=== PATIENT | female | born 1970 | race African-American/Black ===

== ENCOUNTER 2016-11-28 10:06 | Emergency (ER) | payer MEDICAID ==
[~2016-11-28] VITALS: Ht 172.7 cm; Wt 59.0 kg
[2016-11-28 13:39] LABS: CLARITY URINE CLEAR (CLEAR); COLOR URINE YELLOW (YELLOW); GLUCOSE URINE NEGATIVE (NEGATIVE); KETONES URINE NEGATIVE (NEGATIVE); LEUKOCYTE ESTERASE URINE NEGATIVE (NEGATIVE); NITRITE URINE NEGATIVE (NEGATIVE); OCCULT BLOOD URINE NEGATIVE (NEGATIVE); PH URINE 6.5 (4.5-8.0); PROTEIN URINE NEGATIVE (NEGATIVE); SPECIFIC GRAVITY URINE 1.031 (1.005-1.030)
[2016-11-28] MEDS ORDERED: SODIUM CHLORIDE 0.9% 1,000 ML IV ONE (14:06)
[2016-11-28] MEDS ORDERED: KETOROLAC 30MG/ML VIAL IV STA (14:06)
[2016-11-28] MEDS ORDERED: IPRATROPIUM BROMIDE (0.02%) 0.5MG/2.5ML NEB HHN STA (14:14)
[2016-11-28] MEDS ORDERED: ALBUTEROL (0.083%) 2.5MG/3ML NEB HHN STA (14:14)
[2016-11-28 15:21] LABS: INR 1.1
[2016-11-28 15:22] LABS: BASOPHILS % 0.6 % (0.0-2.0); HEMATOCRIT. 34.9 % (36.0-48.0); HEMOGLOBIN. 11.9 g/dL (12.0-16.0); LYMPHOCYTES % 36.5 % (20.0-50.0); MEAN CORPUSCULAR HEMOGLOBIN 30.4 pg (28.0-32.0); MEAN PLATELET VOLUME 7.6 fl (7.4-10.4); MONOCYTES % 7.8 % (2.0-8.0); NEUTROPHILS % 51.1 % (40.0-76.0); PLATELET 281 x1000/uL (130-400); RED BLOOD CELL COUNT 3.93 mill/uL (4.2-5.4); RED CELL DISTRIBUTION WIDTH 12.4 % (11.6-14.6)
[2016-11-28 15:23] LABS: CHLORIDE 112 mEq/L (98-107)
[2016-11-28 15:28] LABS: CARBON DIOXIDE 27 mEq/L (21-32)
[2016-11-28 16:16] VITALS: BP 110/72
== END 2016-11-28 16:35 | disposition home or self-care (01) ==
LOC: ER 12:50
DX: R10.32 Left lower quadrant pain (principal); M54.5 Low back pain; J45.909 Unspecified asthma, uncomplicated; E78.00 Pure hypercholesterolemia, unspecified
CPT/HCPCS: 36415; 76830; 76856; 80053; 81003; 81025; 83690; 85025; 85610; 94640; 96361; 96374; 99285; J1885; J7030; J7611; Z7610

== ENCOUNTER 2016-12-21 20:54 | Emergency (ER) | payer MEDICAID ==
[~2016-12-21] VITALS: Ht 172.7 cm; Wt 58.0 kg
[2016-12-21] MEDS ORDERED: METOCLOPRAMIDE HCL 10MG/2ML VIAL IV ONE (22:45)
[2016-12-21] MEDS ORDERED: KETOROLAC 30MG/ML VIAL IV ONE (22:45)
[2016-12-21] MEDS ORDERED: DIPHENHYDRAMINE 50MG/ML VIAL IV ONE (22:45)
[2016-12-21] MEDS ORDERED: SODIUM CHLORIDE 0.9% 1,000 ML IV ONE (22:45)
[2016-12-21 23:35] VITALS: BP 100/89
== END 2016-12-22 01:12 | disposition home or self-care (01) ==
LOC: ER 20:54
DX: R51 Headache (principal); J45.909 Unspecified asthma, uncomplicated
CPT/HCPCS: 96361; 96374; 96375; 99285; J1200; J1885; J2765; J7030; Z7610

== ENCOUNTER 2017-01-12 08:04 | Emergency (ER) | payer MEDICAID ==
[~2017-01-12] VITALS: Ht 172.7 cm; Wt 61.0 kg
[2017-01-12] MEDS ORDERED: KETOROLAC 30MG/ML VIAL IV STA (10:02)
[2017-01-12] MEDS ORDERED: SODIUM CHLORIDE 0.9% 1,000 ML IV ONE (10:02)
[2017-01-12] MEDS ORDERED: METOCLOPRAMIDE HCL 5MG TABLET PO ONE (10:15)
[2017-01-12] MEDS ORDERED: METOCLOPRAMIDE HCL 10MG/2ML VIAL IV ONE (10:15)
[2017-01-12 10:17] LABS: CLARITY URINE CLEAR (CLEAR); COLOR URINE YELLOW (YELLOW); GLUCOSE URINE NEGATIVE (NEGATIVE); KETONES URINE NEGATIVE (NEGATIVE); LEUKOCYTE ESTERASE URINE TRACE (NEGATIVE); NITRITE URINE NEGATIVE (NEGATIVE); OCCULT BLOOD URINE NEGATIVE (NEGATIVE); PROTEIN URINE NEGATIVE (NEGATIVE); SPECIFIC GRAVITY URINE 1.026 (1.005-1.030); UROBILINOGEN URINE 0.2 E.U./dL (0.2-1.0)
[2017-01-12 10:23] LABS: BASOPHILS % 1.2 % (0.0-2.0); EOSINOPHILS % 1.1 % (0.0-5.0); HEMATOCRIT. 37.8 % (36.0-48.0); HEMOGLOBIN. 12.8 g/dL (12.0-16.0); LYMPHOCYTES % 30.6 % (20.0-50.0); MEAN CORPUSCULAR HEMOGLOBIN 30.2 pg (28.0-32.0); MEAN CORPUSCULAR VOLUME 89.1 fL (81.0-99.0); MEAN PLATELET VOLUME 7.4 fl (7.4-10.4); MONOCYTES % 6.7 % (2.0-8.0); NEUTROPHILS % 60.4 % (40.0-76.0); PLATELET 337 x1000/uL (130-400); RED BLOOD CELL COUNT 4.25 mill/uL (4.2-5.4); RED CELL DISTRIBUTION WIDTH 12.2 % (11.6-14.6)
[2017-01-12 10:30] LABS: CHLORIDE 106 mEq/L (98-107)
[2017-01-12 10:33] LABS: INR 1.1; PROTHROMBIN TIME 11.2 sec
[2017-01-12 10:34] LABS: CARBON DIOXIDE 26 mEq/L (21-32)
[2017-01-12 10:49] LABS: *AMPHETAMINES SCREEN URINE NEGATIVE (NEGATIVE); *BARBITURATES SCREEN URINE NEGATIVE (NEGATIVE); *BENZODIAZEPINES SCREEN URINE NEGATIVE (NEGATIVE); *COCAINE SCREEN URINE NEGATIVE (NEGATIVE); CANNABINOID URINE SCREEN NEGATIVE (NEGATIVE); METHADONE URINE SCREEN NEGATIVE (NEGATIVE); OPIATES URINE SCREEN NEGATIVE (NEGATIVE); PHENCYCLIDINE URINE SCREEN NEGATIVE (NEGATIVE)
[2017-01-12] MEDS ORDERED: MECLIZINE 25MG TABLET PO ONE (11:30)
[2017-01-12 12:22] VITALS: BP 121/74
== END 2017-01-12 12:48 | disposition home or self-care (01) ==
LOC: ER 09:39
DX: N39.0 Urinary tract infection, site not specified (principal); R53.1 Weakness; J45.909 Unspecified asthma, uncomplicated; E78.00 Pure hypercholesterolemia, unspecified
CPT/HCPCS: 36415; 80053; 80305; 81001; 81025; 85025; 85610; 96361; 96374; 96375; 99284; J1885; J2765; J7030; J8597

== ENCOUNTER 2017-03-14 10:15 | Emergency (ER) | payer SELFPAY ==
[~2017-03-14] VITALS: Ht 172.7 cm; Wt 57.0 kg
[2017-03-14] MEDS ORDERED: ALBUTEROL (0.083%) 2.5MG/3ML NEB HHN STA (11:56)
[2017-03-14] MEDS ORDERED: METHYLPREDNISOLONE SOD SUCC 125 MG/2 ML VIAL IM STA (11:56)
[2017-03-14] MEDS ORDERED: IPRATROPIUM BROMIDE (0.02%) 0.5MG/2.5ML NEB HHN STA (11:56)
[2017-03-14 12:15] VITALS: BP 110/69
[2017-03-14] MEDS ORDERED: IBUPROFEN 600MG TABLET PO STA (13:17)
== END 2017-03-14 13:41 | disposition home or self-care (01) ==
LOC: ER 10:15
DX: J45.901 Unspecified asthma with (acute) exacerbation (principal); E78.00 Pure hypercholesterolemia, unspecified
CPT/HCPCS: 94640; 96372; 99283; J2930; J7611

== ENCOUNTER 2017-11-22 07:22 | Emergency (ER) | payer MEDICAID ==
[~2017-11-22] VITALS: Ht 167.6 cm; Wt 50.0 kg
[2017-11-22] MEDS ORDERED: PREDNISONE 20MG TABLET PO STA (07:41)
[2017-11-22] MEDS ORDERED: ALBUTEROL (0.083%) 2.5MG/3ML NEB HHN STA (07:41)
[2017-11-22 08:15] LABS: BASOPHILS % 0.7 % (0.0-2.0); EOSINOPHILS % 1.7 % (0.0-5.0); HEMATOCRIT. 39.7 % (36.0-48.0); HEMOGLOBIN. 13.4 g/dL (12.0-16.0); LYMPHOCYTES % 29.8 % (20.0-50.0); MEAN CORPUSCULAR HEMOGLOBIN 30.3 pg (28.0-32.0); MEAN CORPUSCULAR VOLUME 89.8 fL (81.0-99.0); MEAN PLATELET VOLUME 7.5 fl (7.4-10.4); MONOCYTES % 6.7 % (2.0-8.0); NEUTROPHILS % 61.1 % (40.0-76.0); PLATELET 354 x1000/uL (130-400); RED BLOOD CELL COUNT 4.42 mill/uL (4.2-5.4); RED CELL DISTRIBUTION WIDTH 12.6 % (11.6-14.6)
[2017-11-22 08:18] LABS: CHLORIDE 110 mEq/L (98-107)
[2017-11-22 09:06] VITALS: BP 150/82
== END 2017-11-22 09:19 | disposition home or self-care (01) ==
LOC: ER 07:23
DX: J45.901 Unspecified asthma with (acute) exacerbation (principal); S90.512A Abrasion, left ankle, initial encounter; X58.XXXA Exposure to other specified factors, initial encounter; Y93.89 Activity, other specified; Y92.89 Other specified places as the place of occurrence of the external cause
CPT/HCPCS: 36415; 71045; 80053; 81025; 85025; 94640; 99285; J7512; J7611; Z7610

== ENCOUNTER 2018-03-14 18:03 | Emergency (ER) | payer MEDICAID ==
[~2018-03-14] VITALS: Ht 172.7 cm; Wt 59.0 kg
[2018-03-14] MEDS ORDERED: ALBU18HF2 IH (18:26)
[2018-03-14] MEDS ORDERED: FAMOTIDINE 20MG/2ML VIAL IV STA (21:43)
[2018-03-14] MEDS ORDERED: SODIUM CHLORIDE 0.9% 1,000 ML IV ONE (21:43)
[2018-03-14] MEDS ORDERED: KETOROLAC 30MG/ML VIAL IV STA (21:43)
[2018-03-14 23:29] LABS: BASOPHILS % 0.9 % (0.0-2.0); EOSINOPHILS % 1.8 % (0.0-5.0); HEMATOCRIT. 39.9 % (36.0-48.0); HEMOGLOBIN. 13.4 g/dL (12.0-16.0); LYMPHOCYTES % 40.2 % (20.0-50.0); MEAN CORPUSCULAR HEMOGLOBIN 30.6 pg (28.0-32.0); MEAN CORPUSCULAR VOLUME 91.2 fL (81.0-99.0); MEAN PLATELET VOLUME 8.5 fl (7.4-10.4); MONOCYTES % 7.4 % (2.0-8.0); NEUTROPHILS % 49.7 % (40.0-76.0); PLATELET 282 x1000/uL (130-400); RED BLOOD CELL COUNT 4.37 mill/uL (4.2-5.4); RED CELL DISTRIBUTION WIDTH 12.4 % (11.6-14.6)
[2018-03-14 23:31] LABS: CHLORIDE 107 mEq/L (98-107)
[2018-03-14 23:33] LABS: PROTHROMBIN TIME 10.3 sec (9.1-11.1)
[2018-03-14 23:36] LABS: CLARITY URINE CLEAR (CLEAR); COLOR URINE YELLOW (YELLOW); KETONES URINE TRACE (NEGATIVE); LEUKOCYTE ESTERASE URINE NEGATIVE (NEGATIVE); NITRITE URINE NEGATIVE (NEGATIVE); OCCULT BLOOD URINE NEGATIVE (NEGATIVE); PH URINE 5.5 (4.5-8.0); PROTEIN URINE TRACE (NEGATIVE); SPECIFIC GRAVITY URINE 1.034 (1.005-1.030); UROBILINOGEN URINE 0.2 E.U./dL (0.2-1.0)
[2018-03-14 23:54] LABS: HCG SCREEN NEGATIVE
[2018-03-15] MEDS ORDERED: DIAZEPAM 5 MG TABLET PO ONE
[2018-03-15 02:27] VITALS: BP 111/70
== END 2018-03-15 02:24 | disposition home or self-care (01) ==
LOC: ER 18:03
DX: R10.13 Epigastric pain (principal); N39.0 Urinary tract infection, site not specified; M54.5 Low back pain; R10.2 Pelvic and perineal pain; I10 Essential (primary) hypertension; E78.00 Pure hypercholesterolemia, unspecified; J45.909 Unspecified asthma, uncomplicated; D25.9 Leiomyoma of uterus, unspecified; Z87.11 Personal history of peptic ulcer disease
CPT/HCPCS: 36415; 76705; 76856; 80053; 81003; 81025; 83690; 84703; 85025; 85610; 96374; 96375; 99285; J1885; J3490; J7030; Z7610

== ENCOUNTER 2019-02-07 08:17 | Emergency (ER) | payer SELFPAY ==
[~2019-02-07] VITALS: Ht 172.7 cm; Wt 59.0 kg
[~2019-02-07 08:17] MED LIST: ALBU18HF2 IH
[2019-02-07 10:09] VITALS: BP 118/77
[2019-02-09 04:12] LABS: CHLAMYDIA TRACHOMATIS NAA Negative (Negative); NEISSERIA GONORRHOEAE NAA Negative (Negative)
== END 2019-02-07 10:10 | disposition home or self-care (01) ==
LOC: ER 08:17
DX: N95.2 Postmenopausal atrophic vaginitis (principal); Z20.2 Contact with and (suspected) exposure to infections with a predominantly sexual mode of transmission; J45.909 Unspecified asthma, uncomplicated
CPT/HCPCS: 81025; 87210; 87491; 87591; 99283

== ENCOUNTER 2021-02-25 21:45 | Emergency (ER) | payer MEDICAID ==
[~2021-02-25] VITALS: Ht 172.7 cm; Wt 57.6 kg
[2021-02-25 21:49] VITALS: BP 136/82
[2021-02-25] MEDS ORDERED: KETOROLAC 60MG/2ML VIAL IM ONE (23:30)
[2021-02-26] MEDS ORDERED: IBUP-2028 MT (00:15)
== END 2021-02-26 02:08 | disposition home or self-care (01) ==
LOC: ER 21:45
DX: S16.1XXA Strain of muscle, fascia and tendon at neck level, initial encounter (principal); V49.49XA Driver injured in collision with other motor vehicles in traffic accident, initial encounter; Y93.89 Activity, other specified; Y92.89 Other specified places as the place of occurrence of the external cause; Y99.8 Other external cause status; J45.909 Unspecified asthma, uncomplicated
CPT/HCPCS: 72125; 96372; 99284; J1885

== ENCOUNTER 2023-04-24 20:29 | Emergency (ER) | payer MEDICAID, OTHER ==
[~2023-04-24] VITALS: Ht 172.7 cm; Wt 59.0 kg
[~2023-04-24 20:29] MED LIST changes: +IBUP-2028 MT
[2023-04-24 21:04] VITALS: TEMP 98.2; O2SAT 100
[2023-04-24 22:30] VITALS: BP 105/80; PULSE 117; RESP 18
[2023-04-24] MEDS ORDERED: IBUPROFEN 600MG TABLET PO ONE (22:30)
[2023-04-25 01:16] LABS: CLARITY URINE CLEAR (CLEAR); COLOR URINE DARK YELLOW (YELLOW); GLUCOSE URINE NEGATIVE (NEGATIVE); KETONES URINE NEGATIVE (NEGATIVE); LEUKOCYTE ESTERASE URINE TRACE (NEGATIVE); NITRITE URINE NEGATIVE (NEGATIVE); OCCULT BLOOD URINE NEGATIVE (NEGATIVE); PH URINE 5.5 (4.5-8.0); PROTEIN URINE TRACE (NEGATIVE); SPECIFIC GRAVITY URINE 1.029 (1.005-1.030)
[2023-04-25 01:19] LABS: BACTERIA URINE NONE SEEN; YEAST URINE NONE SEEN
[2023-04-25] MEDS ORDERED: FLUC150T46 PO ×2 (01:43)
[2023-04-25] MEDS ORDERED: METR70GE5 VG (01:43)
[2023-04-25] MEDS ORDERED: CEPH500C2 MT (02:22)
[2023-04-25] MEDS ORDERED: IBUP-2029 MT (02:22)
[2023-04-25 04:28] LABS: SQUAMOUS EPITHELIAL CELL URINE RARE /lpf (RARE/1+)
[2023-04-25 04:31] LABS: RBC URINE 0-2 /hpf (0-2)
[2023-04-28 04:07] LABS: CHLAMYDIA TRACHOMATIS NAA Negative (Negative); NEISSERIA GONORRHOEAE NAA Negative (Negative)
== END 2023-04-25 02:52 | disposition home or self-care (01) ==
LOC: ER 20:29
DX: R35.0 Frequency of micturition (principal); J45.909 Unspecified asthma, uncomplicated; E78.00 Pure hypercholesterolemia, unspecified
CPT/HCPCS: 73560; 73590; 81003; 87210; 87491; 87591; 99284